=== PATIENT | female | born 1995 | race Two or more races ===

== ENCOUNTER 2018-09-25 17:19 | Emergency (ER) | payer SELFPAY ==
[2018-09-25 17:26] VITALS: BP 157/106; TEMP 98
--- NOTE | 2018-09-25 18:40 | ED PDOC ---
HPI: Psych/Substance Abuse Time Seen by Provider: 09/25/18 17:43 Chief Complaint (Nursing): Alcohol Ingestion Chief Complaint (Provider): Alcohol intoxication ED Caveat: Intoxicated History Per: Patient, EMS History/Exam Limitations: intoxication Onset/Duration Of Symptoms: Mins Additional Complaint(s): 23 y/o female presents to the ER with police with possible alcohol intoxication. Patient was brought in by police for trespassing on stranger's property. PMD: none Past Medical History Reviewed: Historical Data, Nursing Documentation, Vital Signs Vital Signs: Last Vital Signs Temp 98.0 F 09/25/18 17:23 Pulse 110 H 09/25/18 17:23 Resp 16 09/25/18 17:23 BP 157/106 H 09/25/18 17:23 Pulse Ox 98 09/25/18 17:23 Primary Care Provider: FAMILY PROVIDER,NO - Medical History PMH: No Chronic Diseases - Surgical History Surgical History: No Surg Hx - Family History Family History: States: Unknown Family Hx - Allergies Allergies/Adverse Reactions: Allergies Allergy/AdvReac Type Severity Reaction Status Date / Time No Known Allergies Allergy Verified 09/25/18 17:23 Review of Systems Review Of Systems: ROS cannot be obtained secondary to pt's inabilty to answer questions. (limited due to intoxication) Psych: Positive for: Other (Paranoia) Physical Exam - Reviewed Nursing Documentation Reviewed: Yes Vital Signs Reviewed: Yes - Physical Exam Appears: Positive for: No Acute Distress Head Exam: Positive for: ATRAUMATIC, NORMOCEPHALIC Skin: Positive for: Normal Color, Warm, Dry Eye Exam: Positive for: Normal appearance, EOMI, PERRL Neck: Positive for: Normal, Painless ROM Cardiovascular/Chest: Positive for: Regular Rate, Rhythm (regular rhythm), Tachycardia Respiratory: Positive for: Normal Breath Sounds. Negative for: Wheezing, Respiratory Distress Extremity: Positive for: Normal ROM Neurological/Psych: Positive for: Awake, Alert, Normal Tone, Gait (steady), Other (Agitated). Negative for: Oriented - ECG O2 Sat by Pulse Oximetry: 98 (RA) Pulse Ox Interpretation: Normal Medical Decision Making Medical Decision Making: Initial Impression: Agitation and possible alcohol intoxication Initial Plan: --Alcohol serum stat --Drug screen --HCG stat --Ativan 1mg IM --Haldol 2.5mg IM --1:1 observation Physical restraints ordered because of agitation, substance induced delirium and possible psychosis. Patient potentially could cause harm to herself or to others. 19:00 Patient signed out to Dr. Baum. Pending clinical sobriety. Scribe Attestation: Documented by Daniel Castellanos acting as a scribe for Khushbu Oneill MD. Provider Scribe Attestation: All medical record entries made by the Scribe were at my direction and personally dictated by me. I have reviewed the chart and agree that the record accurately reflects my personal performance of the history, physical exam, medical decision making, and the department course for this patient. I have also personally directed, reviewed, and agree with the discharge instructions and disposition. Disposition - Clinical Impression Clinical Impression: Alcohol abuse with intoxication delirium - Disposition Disposition: Transfer of Care Disposition Time: 19:00 Condition: IMPROVED Instructions: Alcohol Use - When Is Drinking a Problem?, Effects of Alcohol on Your Health Forms: [employer] (Vietnamese) Patient Signed Over To: Deuce Baum
--- NOTE | 2018-09-25 19:33 | ED PDOC ---
- ECG O2 Sat by Pulse Oximetry: 98 (RA) Medical Decision Making Medical Decision Makin:00 Patient signed out to this provider from Dr. Oneill. Pending clinical sobriety. 21:55 Upon reevaluation patient is awake and alert now. Patient still has somewhat unsteady gait but father states he feels comfortable taking her home. He has agreed to sign the discharge papers. Patient is stable for discharge with diagnosis of alcohol intoxication with delirium. Condition is improved. Scribe Attestation: Documented by Daniel Castellanos acting as a scribe for Deuce Baum MD. Provider Scribe Attestation: All medical record entries made by the Scribe were at my direction and personally dictated by me. I have reviewed the chart and agree that the record accurately reflects my personal performance of the history, physical exam, medical decision making, and the department course for this patient. I have also personally directed, reviewed, and agree with the discharge instructions and disposition. Disposition - Clinical Impression Clinical Impression: Alcohol abuse with intoxication delirium - POA Present On Arrival: None - Disposition Disposition: Routine/Home Disposition Time: 21:55 Condition: IMPROVED Instructions: Alcohol Use - When Is Drinking a Problem?, Effects of Alcohol on Your Health Forms: [employer] (Thai)
[2018-09-25 21:57] VITALS: O2SAT 98
[2018-09-25 22:03] VITALS: PULSE 76; RESP 24
== END 2018-09-25 21:55 | disposition home or self-care (01) ==
LOC: H.ER 17:19
DX: F10.121 Alcohol abuse with intoxication delirium (principal)
CPT/HCPCS: 84703; 96372; 99285; G0480; J1630; J2060